=== PATIENT | female | born 1975 | race Caucasian/White ===

== ENCOUNTER 2021-01-21 00:17 | Emergency (ER) | payer OTHER ==
[~2021-01-21] VITALS: Ht 180.3 cm; Wt 113.4 kg
[~2021-01-21 00:17] MED LIST: AUGMENTIN 875875 MG PO; CIPROFLOXACIN500 M1 PO; LEVAQUIN 500 M500 M4 PO; NOHOMEMEDICATIONS; NORCO 5-325 TA1 EACH PO; PREDNISONE 20 M20 MG PO; VENTOLIN HFA 1818 GM INH
[2021-01-21 00:34] LABS: ABSOLUTE NEUTROPHILS 4.8 thou/uL (1.4-8.2); BASOPHILS 0.7 % (0.0-2.0); EOSINOPHILS 0.4 % (0.0-3.0); HEMOGLOBIN 10.6 gm/dL (12.0-15.0); LYMPHOCYTES 42.6 % (24.0-44.0); MCH 23.3 pg (26.0-34.0); MCHC 31.4 g/dL (28.0-37.0); MCV 74.3 fL (80.0-100.0); MONOCYTES 7.3 % (1.0-8.0); PLATELET COUNT 212 thou/uL (150-400); RBC 4.57 mil/uL (4.20-5.00); RDW 14.6 % (10.5-14.5); WBC 9.8 thou/uL (4.0-11.0)
[2021-01-21 00:38] LABS: ANION GAP 10 mmol/L (7-16); BUN 11 mg/dL (7-18); CALCIUM 8.3 mg/dL (8.5-10.1); CHLORIDE 104 mmol/L (98-107); CO2 25 mmol/L (21-32); CREATININE 0.8 mg/dL (0.6-1.0); GLUCOSE 104 mg/dL (74-106); POTASSIUM 3.3 mmol/L (3.5-5.1); SODIUM 139 mmol/L (136-145)
[2021-01-21 00:48] LABS: ALBUMIN 3.6 g/dL (3.4-5.0); LIPASE 131 U/L (73-393); SGOT 17 U/L (15-37); SGPT 24 U/L (30-65); TOTAL BILIRUBIN 0.6 mg/dL (0.2-1.0)
[2021-01-21 02:13] LABS: URINE BILIRUBIN 1+ (Negative); URINE BLOOD 3+ (Negative); URINE CLARITY CLOUDY; URINE COLOR BROWN; URINE GLUCOSE-RANDOM* NEGATIVE (Negative); URINE KETONES NEGATIVE (Negative); URINE PROTEIN (DIPSTICK) 2+ (Negative)
[2021-01-21 02:18] LABS: URINE LEUKOCYTES-REFLEX 1+ (Negative); URINE NITRITE-REFLEX POSITIVE (Negative)
[2021-01-21 02:22] LABS: BACTERIA-REFLEX >30 Many /HPF (None Seen); CASTS None Seen /LPF (None Seen); CRYSTALS None Seen /LPF (None Seen); MUCUS None Seen strn/LPF (None Seen); SQUAMOUS None Seen /LPF (0-3); URINE RBC >20 Many /HPF (NONE SEEN); URINE WBC-REFLEX >25 Many /HPF (0-5)
[2021-01-21] MEDS ORDERED: CEPHALEXIN500 MG PO (05:01)
[2021-01-21 05:05] VITALS: BP 146/80
--- NOTE | 2021-01-23 07:28 | EKG ---
[address] [address] ELECTROCARDIOGRAM REPORT Name: REGINO HADLEY [facility] [id number] Admission: 01/21/21 Attend Phys: Discharge: 01/21/21 Date of : 73 Report #: [id number] [facility] ED Test Date: 2021-01-21 Test Time: 00:19:54 Pat Name: REGINO HADLEY Department: Room: Gender: F Construction Executive: : 1975 Requested By: Veronica Nuno Order Number: [id number] MD: Alirio Wiggins Measurements Intervals [place] Rate: 101 P: 48 [place]: 160 QRS: 3 QRSD: 110 T: 31 QT: 341 QTc: 442 Interpretive Statements Sinus tachycardia No previous ECG available for comparison Electronically Signed On 01-23-2021 7:28:25 CDT by Alirio Wiggins [email or web address] <ELECTRONICALLY SIGNED> By: Alirio Wiggins MD, [facility] 01/23/21 0728 0019 0019 Alirio Wiggins MD, FACC /EPI
== END 2021-01-21 05:05 | disposition home or self-care (01) ==
LOC: ER 00:17
PROVIDERS: Emergency Medicine
DX: N39.0 Urinary tract infection, site not specified (principal); R10.13 Epigastric pain; Z90.49 Acquired absence of other specified parts of digestive tract